=== PATIENT | female | born 1960 | race Caucasian/White ===

== ENCOUNTER 2016-11-30 12:03 | Emergency (ER) | payer SELFPAY ==
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
[2016-11-30 13:49] VITALS: BP 119/88; PULSE 84; RESP 16; TEMP 98.2; O2SAT 97
== END 2016-11-30 13:49 | disposition home or self-care (01) ==
DX: S40.021A Contusion of right upper arm, initial encounter (principal); S06.0X0A Concussion without loss of consciousness, initial encounter; F17.200 Nicotine dependence, unspecified, uncomplicated; W22.8XXA Striking against or struck by other objects, initial encounter; Y99.8 Other external cause status; Y93.89 Activity, other specified

== ENCOUNTER 2016-12-01 09:42 | Emergency (ER) | payer MEDICAID ==
[2016-12-01 09:47] VITALS: TEMP 97.9
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
[2016-12-01 11:11] VITALS: BP 135/92; PULSE 85; RESP 18; O2SAT 94
== END 2016-12-01 11:09 | disposition home or self-care (01) ==
DX: S42.401D Unspecified fracture of lower end of right humerus, subsequent encounter for fracture with routine healing (principal); F17.200 Nicotine dependence, unspecified, uncomplicated; V78.9XXA Unspecified occupant of bus injured in noncollision transport accident in traffic accident, initial encounter; Y92.410 Unspecified street and highway as the place of occurrence of the external cause; Y99.8 Other external cause status; Y93.89 Activity, other specified